=== PATIENT | female | born 1960 | race Caucasian/White ===

== ENCOUNTER 2023-11-09 09:22 | Emergency (ER) | payer MEDICARE, OTHER, SELFPAY ==
[2023-11-09 09:26] VITALS: BP 179/81
[2023-11-09 09:58] VITALS: BMI 39.6
[2023-11-09 10:11] LABS: % Basophils 1.1 % (0-2); % Eosinophils 4.1 % (0-6); % Immature Granulocytes 0.3 % (0-0.5); % Lymphocytes 22.4 % (20.5-51.1); % Monocytes 9.1 % (1.7-9.3); Absolute Basophils 0.1 10^3/uL (0-0.2); Absolute Eosinophils 0.3 10^3/uL (0-0.7); Absolute Lymphocytes 1.7 10^3/uL (1.2-3.4); Absolute Monocytes 0.7 10^3/uL (0.1-0.6); Absolute Neutrophils 4.7 10^3/uL (1.4-6.5); Hematocrit 40.6 % (37.0-47.0); Hemoglobin 13.8 g/dL (12.0-16.0); Mean Corpuscular Hgb 27.9 pg (27.0-31.0); Nucleated Red Blood Cells % 0 %; Platelet Count 253 10^3/uL (130-400); Red Blood Cell Count 4.95 10^6/uL (4.20-5.40); Red Cell Dist. Width 13.3 % (11.5-14.5); White Blood Cell Count 7.5 10^3/uL (4.8-10.8)
[2023-11-09 10:27] LABS: COVID-19 Antigen Negative (Negative)
[2023-11-09] MEDS: DUONEB 3 ML INH (10:31)
--- NOTE | 2023-11-09 10:32 | ED.GENMED ---
History of Present Illness
General
Chief Complaint: Breathing Problem
Time Seen by Provider: 11/09/23 10:06
Travel History
Have you had any contact with someone who has COVID-19?: No
Do you have any symptoms of coronavirus? Fever > 100 degrees, chills, cough, shortness of breath, sore throat, loss of taste or smell, muscle aches, or headache?: No
History of Present Illness
History of Present Illness:
63-year-old female presents to the emergency department for evaluation of cough and shortness of breath occurring intermittently over the past week. States she had a similar illness 1 month ago and was treated for pneumonia at urgent care with
antibiotics and steroids and her symptoms improved. She does note significant viral exposures due to young grandchildren at home. Denies any chest pain or fevers currently. No leg swelling. Has been using her albuterol inhaler without
significant relief
Past History
Past History
ED Past Medical History: Asthma, CAD, COPD, HTN, Hypercholesterolemia, [place] (2014) and Other (kidney stones, PNA)
ED Past Surgical History: Cardiac (Stent X 1), Cholecystectomy, Gynecological (Ectopic with tube removed, unsure which one), Orthopedic (right knee surgery) and Urological (Lithotripsy)
Social History
Tobacco: Former smoker
Alcohol: None
Drug: None
Personal:
Living: alone
Family History
Family History: Early CAD and CAD
Review of Systems
Review of Systems
Allergies reviewed?: Yes
All Other Systems: ROS reviewed and negative except as documented in HPI and ROS
Phy Exam
Physical Exam
Physical Exam:
GEN: Well appearing, NAD, WDWN
HEENT: Oral mucosa moist, no scleral icterus
Cardiac: Regular rate and rhythm, no murmurs
Lung: No respiratory distress, no tachypnea, expiratory wheezes and rhonchi heard throughout all lung oliva, minimal improvement with coughing
MSK: No gross deformity or injuries
Skin: Good color, no pallor or jaundice, no rashes
Neuro: AO x3, moves all extremities freely
Psych: Calm, cooperative
Scores
Heart Failure Risk
Heart Failure Risk Score: Not Applicable
Course
Orders/Labs/Results
Orders:
Orders
11/09/23 09:50
CR Chest - 2 Views Urgent
Comment:
Reason For Exam: cough
11/09/23 09:58
COVID-19 Antigen Urgent
Source: Nasal Swab
Complete Blood Count/With Diff Urgent
Comprehensive Metabolic Panel Urgent
Influenza A+B Rapid Molecular Urgent
[place] Source: Nasal Swab
Specimen Description:
11/09/23 10:23
Ipratropium/Albuterol Sulfate [Duoneb] 3 ml INH R NOW STA
11/09/23 11:08
Dexamethasone Sod Phosphate [Decadron] 6 mg IV NOW STA
Abnormal Lab Results
11/09/23
09:58
MPV 11.0 H fL
(7.4-10.4)
Absolute Monos (auto) 0.7 H 10^3/uL
(0.1-0.6)
Chloride 108 H mmol/L
(98-107)
BUN 19 H mg/dl
(7-17)
Glucose 105 H mg/dl
(70-99)
AST 63 H U/L
(14-36)
ALT 76 H U/L
(0-35)
11/09/23 09:58
11/09/23 09:58
Vital Signs
Initial and Last Documented VS:
Initial Vital Signs
Temp Pulse Resp BP Pulse Ox
98 F 68 22 179/81 98
11/09/23 09:26 11/09/23 09:26 11/09/23 09:26 11/09/23 09:26 11/09/23 09:26
Last Documented Vital Signs
Temp Pulse Resp BP Pulse Ox
98 F 68 22 179/81 98
11/09/23 09:26 11/09/23 09:26 11/09/23 09:26 11/09/23 09:26 11/09/23 09:26
MDM/Problems Addressed
MDM/Problems Addressed:
Patient's symptoms improved after a nebulizer treatment. Chest x-ray independently interpreted by me is negative for acute cardiopulmonary abnormality. No evidence for infectious etiology. Labs are reassuring. Will treat with corticosteroids
*Critical Care Note
Total Time (30-74mins, 75-104mins- exclusive of procedures): Not Applicable
ED Attending Note
-
Portions of this chart may have been created with voice recognition software.� Occasional wrong word or��sound alike� substitutions may have occurred due to the inherent limitations of voice recognition software.
Discharge Plan
Departure
Patient Disposition: Home (Routine Discharge)
Date of Disposition: 11/09/23
Time of Disposition: 11:09
Patient with high blood pressure during this ER visit?: No
Discharge Problem:
Acute asthma exacerbation
Instructions: Asthma, Adult (DC)
Prescriptions:
New
methylprednisolone [Medrol (Slava)] 4 mg tablets,dose pack
See Rx Instructions .ROUTE .COMPLEX Qty: 21 0RF
Rx Instructions:
orally per package directions
No Action
atorvastatin 40 MG tablet
40 mg PO QPM
aspirin 81 MG tablet,delayed release (DR/EC)
81 mg PO DAILY
carvedilol 3.125 MG tablet
3.125 mg PO BID
cholecalciferol (vitamin D3) [Vitamin D3] 25 mcg (1,000 unit) Capsule
125 mcg PO DAILY Qty: 0
pantoprazole 40 MG tablet,delayed release (DR/EC)
40 mg PO DAILY 30 Days Qty: 30 0RF
fluticasone propion-salmeterol [Wixela Inhub] 250-50 mcg/dose Blister With Device
1 inh INHALATION R BID
multivitamin-minerals no.55 Tablet,Chewable
1 tab PO DAILY
albuterol sulfate [ProAir HFA] 1 PUFF HFA aerosol inhaler
2 puff inhalation R Q4HPRN PRN (Reason: sob or wheezing)
cephalexin 500 mg capsule
500 mg PO QID 3 Days Qty: 12 0RF
tramadol 50 mg tablet
50 mg PO Q8H PRN (Reason: mod sev pain) Qty: 14 0RF
prednisone 20 mg tablet
20 mg PO BID Qty: 14 0RF
oxycodone-acetaminophen [Percocet] 5-325 mg tablet
1 tab PO Q4H PRN (Reason: pain) Qty: 20 0RF
Referrals:
Vasu Mcfadden MD [Family Provider] -
Interventions
Interventions:
*Risk Screen - Suicide Last Done: 11/09/23 09:26
*General Assessment Last Done: 11/09/23 09:26
*Neglect/Abuse Screening Last Done: 11/09/23 09:26
ED- Pulmonary Assessment Last Done: 11/09/23 09:54
Discharge Date and Time
Print Language: ITALIAN
[2023-11-09 10:33] LABS: ALT (SGPT) 76 U/L (0-35); AST (SGOT) 63 U/L (14-36); Albumin 3.9 g/dl (3.5-5.0); Alkaline Phosphatase 86 U/L (38-126); Blood Urea Nitrogen 19 mg/dl (7-17); Calcium 10.1 mg/dl (8.4-10.2); Carbon Dioxide 25 mmol/L (22-30); Chloride 108 mmol/L (98-107); Estimated Creatinine Clearance 77 ml/min; Glucose 105 mg/dl (70-99); Potassium 3.9 mmol/L (3.5-5.1); Sodium 142 mmol/L (135-145); Total Bilirubin 0.7 mg/dl (0.2-1.3); Total Protein 6.9 g/dl (6.3-8.2); eGFR > 60.00
[2023-11-09] MEDS: DECADRON 6 MG IV (11:11)
== END 2023-11-09 11:50 | disposition home or self-care (01) ==
LOC: EMR 09:22
PROVIDERS: EMERGENCY PHYSICIAN Emergency Medicine; FAMILY PHYSICIAN Family Medicine
DX: J45.901 Unspecified asthma with (acute) exacerbation (principal); Z87.891 Personal history of nicotine dependence
CPT/HCPCS: 99284; 96374; 94640; 71046; 80053; 85025; 87502; 87811

== ENCOUNTER 2024-04-08 23:16 | Emergency (ER) | payer MEDICARE, OTHER, SELFPAY ==
[2024-04-08 23:20] VITALS: BP 165/95
[2024-04-09 00:33] LABS: Glucose - Point of Care 180 mg/dl (70-99)
--- NOTE | 2024-04-09 00:35 | ED.MUSCINJ ---
HPI-Injury
<[place] DO - Last Filed: 04/09/24 00:49>
General
Chief Complaint: Extremity Pain (non-traumatic)
Time Seen by Provider: 04/09/24 00:11
History of Present Illness-Injury
Initial Injury comments:
64 female atraumatic left lower extremity pain, was at the gym today which not unusual for her pain is moderate worse movement better with rest no open wounds, told she was prediabetic before, not on any meds for diabetes,
Past History
<Geno Horta [facility] - Last Filed: >
Past History
ED Past Medical History: Asthma, CAD, COPD, HTN, Hypercholesterolemia, [place] (2013) and Other (kidney stones, PNA)
ED Past Surgical History: Cardiac (Stent X 1), Cholecystectomy, Gynecological (Ectopic with tube removed, unsure which one), Orthopedic (right knee surgery) and Urological (Lithotripsy)
Social History
Tobacco: Former smoker
Alcohol: None
Drug: None
Personal:
Living: alone
Family History
Family History: Early CAD and CAD
Phy Exam
<[place] DO - Last Filed: 04/09/24 00:49>
Physical Exam
Physical Exam:
Physical Exam
General: no apparent distress, not acutely ill
Neck: No jaundice
Lungs: no acute respiratory distress. clear bilaterally
Neuro: alert and oriented. no focal neurological deficits
Skin: no rash
Psychiatric: well kept. interactive and cooperative
Extremities: Left lower extremity warm perfused palpable distal pulses, minimal tenderness over the midfoot,
Injury Course
<[place] DO - Last Filed: 04/09/24 00:49>
Orders/Labs/Results
Orders:
Orders
04/08/24 23:24
Foot, Left 3 View [CR Foot - Left Min 3 Views] Urgent
Comment:
Reason For Exam: pain
04/09/24 00:35
Ramirez Wrap Left-Treatment ONCE
Crutches-Treatment ONCE
Ibuprofen [Motrin] 600 mg PO NOW STA
Abnormal Lab Results
04/09/24
00:31
POC Glucose 180 H mg/dl
(70-99)
<RAYSHAWN Pisano - Last Filed: >
Orders/Labs/Results
Orders:
Orders
04/08/24 23:24
Foot, Left 3 View [CR Foot - Left Min 3 Views] Urgent
Comment:
Reason For Exam: pain
04/09/24 00:35
Ramirez Wrap Left-Treatment ONCE
Crutches-Treatment ONCE
Ibuprofen [Motrin] 600 mg PO NOW STA
Abnormal Lab Results
04/09/24
00:31
POC Glucose 180 H mg/dl
(70-99)
<Montana Beach DO - Last Filed: 04/09/24 00:49>
MDM/Problems Addressed
Differential Diagnosis Includes:
Overuse gout occult fracture or stress fracture arterial insufficiency
MDM/Problems Addressed:
Foot pain
Chronic conditions affecting care: CAD
Acute Exacerbation and/or Progression of Chronic Illness: CAD
<Montana Beach DO - Last Filed: 04/09/24 00:49>
*Radiology
Radiology exam reviewed: preliminary read by ED provider
*Pulse Oximetry
Patient hypoxic: no
*Critical Care Note
Total Time (30-74mins, 75-104mins- exclusive of procedures): Not Applicable
ED Attending Note
<RAYSHAWN Pisano - Last Filed: >
-
Portions of this chart may have been created with voice recognition software.� Occasional wrong word or��sound alike� substitutions may have occurred due to the inherent limitations of voice recognition software.
Discharge Plan
Departure
Patient Disposition: Home (Routine Discharge)
Date of Disposition: 04/09/24
Time of Disposition: 00:45
Patient with high blood pressure during this ER visit?: No
Condition: Good
Covid-19: Not Applicable
Discharge Problem:
Acute foot pain
Instructions: Muscle and Bone Pain (DC)
Prescriptions:
No Action
atorvastatin 40 MG tablet
40 mg PO QPM
aspirin 81 MG tablet,delayed release (DR/EC)
81 mg PO DAILY
carvedilol 3.125 MG tablet
3.125 mg PO BID
cholecalciferol (vitamin D3) [Vitamin D3] 25 mcg (1,000 unit) Capsule
125 mcg PO DAILY Qty: 0
pantoprazole 40 MG tablet,delayed release (DR/EC)
40 mg PO DAILY 30 Days Qty: 30 0RF
fluticasone propion-salmeterol [Wixela Inhub] 250-50 mcg/dose Blister With Device
1 inh INHALATION R BID
multivitamin-minerals no.55 Tablet,Chewable
1 tab PO DAILY
albuterol sulfate [ProAir HFA] 1 PUFF HFA aerosol inhaler
2 puff inhalation R Q4HPRN PRN (Reason: sob or wheezing)
cephalexin 500 mg capsule
500 mg PO QID 3 Days Qty: 12 0RF
tramadol 50 mg tablet
50 mg PO Q8H PRN (Reason: mod sev pain) Qty: 14 0RF
prednisone 20 mg tablet
20 mg PO BID Qty: 14 0RF
oxycodone-acetaminophen [Percocet] 5-325 mg tablet
1 tab PO Q4H PRN (Reason: pain) Qty: 20 0RF
methylprednisolone [Medrol (Slava)] 4 mg tablets,dose pack
See Rx Instructions .ROUTE .COMPLEX Qty: 21 0RF
Rx Instructions:
orally per package directions
Referrals:
Trish Sarah PA [Family Provider] - Next open appointment
Angie Carson DPM [Specified Professional Personl] - Next open appointment
Interventions
Interventions:
*Risk Screen - Suicide Last Done: 04/08/24 23:20
*General Assessment Last Done: 04/08/24 23:20
*Neglect/Abuse Screening Last Done: 04/08/24 23:20
ED- Fall Risk Assessment Last Done: 04/08/24 23:45
*ED COVID-19 Vaccine History Last Done: 04/08/24 23:45
ED-Skin Assessment Last Done: 04/08/24 23:52
ED-Peripheral Vascular Assessment Last Done: 04/08/24 23:52
ED-Musculoskeletal Assessment Last Done: 04/08/24 23:52
Discharge Date and Time
Print Language: MAORI
[2024-04-09] MEDS: ROXICODONE 5 MG PO (01:01)
== END 2024-04-09 01:10 | disposition home or self-care (01) ==
LOC: EMR 23:16
PROVIDERS: EMERGENCY PHYSICIAN Emergency Medicine; FAMILY PHYSICIAN Family Medicine
DX: M79.605 Pain in left leg (principal); Z87.891 Personal history of nicotine dependence; I25.10 Atherosclerotic heart disease of native coronary artery without angina pectoris
CPT/HCPCS: 99283; 73630; 82962

== ENCOUNTER → 2024-04-22 10:04 | Outpatient (REF) | payer MEDICARE, OTHER, SELFPAY ==
--- NOTE | 2024-04-22 14:20 | PN.DIAED06 ---
Meal Plans - Regular
- Meal Plan
Diabetic Meal Plan Name: 1800 calories
Breakfast - Total Carbohydrate (grams): 45
Breakfast - Starch Carbohydrate: 0
Breakfast - Fruit Carbohydrate: 0
Breakfast - Milk Carbohydrate: 0
Breakfast - Nonstarchy Vegetables: Yes
Breakfast - Meat/Protein: 1
Breakfast - Fat: 2
Morning Snack - Total Carbohydrate (grams): 15
Morning Snack - Starch Carbohydrate: 0
Morning Snack - Fruit Carbohydrate: 0
Morning Snack - Milk Carbohydrate: 0
Morning Snack - Nonstarchy Vegetables: Yes
Morning Snack - Meat/Protein: 0.5
Morning Snack - Fat: 0
Lunch - Total Carbohydrate (grams): 45
Lunch - Starch Carbohydrate: 0
Lunch - Fruit Carbohydrate: 0
Lunch - Milk Carbohydrate: 0
Lunch - Nonstarchy Vegetables: Yes
Lunch - Meat/Protein: 3
Lunch - Fat: 1
Afternoon Snack - Total Carbohydrate (grams): 15
Afternoon Snack - Starch Carbohydrate: 0
Afternoon Snack - Fruit Carbohydrate: 0
Afternoon Snack - Milk Carbohydrate: 0
Afternoon Snack - Nonstarchy Vegetables: Yes
Afternoon Snack - Meat/Protein: 0.5
Afternoon Snack - Fat: 0
Dinner - Total Carbohydrate (grams): 45
Dinner - Starch Carbohydrate: 0
Dinner - Fruit Carbohydrate: 0
Dinner - Milk Carbohydrate: 0
Dinner - Nonstarchy Vegetables: Yes
Dinner - Meat/Protein: 3
Dinner - Fat: 2
Evening Snack - Total Carbohydrate (grams): 15
Evening Snack - Starch Carbohydrate: 0
Evening Snack - Fruit Carbohydrate: 0
Evening Snack - Milk Carbohydrate: 0
Evening Snack - Nonstarchy Vegetables: Yes
Evening Snack - Meat/Protein: 0
Evening Snack - Fat: 0
--- NOTE | 2024-04-22 14:24 | PN.DIAED02 ---
Referral
Referred For: Diabetes Self-Management Training
PHI Release Authorization Form Signed: Yes
Care Plan
- Plan of Care
Plan of Care:
Met with Hafsa for a 'holdover' appointment. A1C 7.1% (04/15/2024), states she was recently started on Ozempic for weight loss.
Hafsa brought with her a OneTouch glucometer that was prescribed by her PCP. Instructions were given on proper testing technique, sites, pattern and expected results. Good return demonstration was noted with result of 137 mg/dl 2 hr post breakfast.
Reviewed macronutrients and role each plays in glucose, Discussed reading food labels and to initially measure some foods for the correct portion sizes. Provided with 1800 manfred ADA meal plan, with a morning and afternoon snack of 15 gm CHO. Handout
on snack options given along with handout on testing pattern and expected results. She is aware to add protein to each meal and snack. She recently joined [employer] and has been exercising 3-5 times a week.
Encouraged her to remain active, maintain her monitoring schedule an keep a glucose log that she will bring with her 1st day of class.
Encouraged outpt DSME classes and Phone number provided for follow up questions.
== END ==
LOC: DES 10:04
PROVIDERS: ATTENDING PHYSICIAN Family Medicine
DX: E11.9 Type 2 diabetes mellitus without complications (principal)
CPT/HCPCS: 99078

== ENCOUNTER → 2025-03-07 19:22 | Outpatient (REF) | payer MEDICARE, OTHER, SELFPAY | LOC: WDC 19:22 | PROVIDERS: ATTENDING PHYSICIAN Family Medicine | DX: Z12.31 Encounter for screening mammogram for malignant neoplasm of breast (principal) | CPT/HCPCS: 77063; 77067 ==